=== PATIENT | female | born 1950 | race Caucasian/White ===

== ENCOUNTER 2024-10-31 16:47 | Emergency (ER) | payer MEDICARE, OTHER ==
[~2024-10-31] VITALS: Ht 162.6 cm; Wt 74.8 kg
[2024-10-31 17:20] VITALS: BP 110/61; TEMP 98.1
[2024-10-31] MEDS ORDERED: KETOROLAC TROMETHAMINE 15 MG/ML VIAL ONE (18:46)
[2024-10-31] MEDS ORDERED: dexaMETHasone SOD PHOSPHATE 4 MG/ML VIAL ONE (18:47)
[2024-10-31] MEDS: dexaMETHasone SOD PHOSPHATE 4 MG/ML VIAL IM ONE (18:53)
[2024-10-31] MEDS: KETOROLAC TROMETHAMINE 15 MG/ML VIAL IM ONE (18:56)
[2024-10-31 19:05] VITALS: O2SAT 99
== END 2024-10-31 19:06 | disposition home or self-care (01) ==
LOC: ER 17:17
DX: R20.0 Anesthesia of skin (principal); M54.2 Cervicalgia; R13.10 Dysphagia, unspecified; R47.81 Slurred speech; R53.1 Weakness; E78.5 Hyperlipidemia, unspecified; I48.91 Unspecified atrial fibrillation; Z79.01 Long term (current) use of anticoagulants; Z88.0 Allergy status to penicillin
CPT/HCPCS: 99284; 96372; J1885; J1100

== ENCOUNTER 2024-11-09 16:20 | Emergency (ER) | payer MEDICARE, OTHER ==
[~2024-11-09] VITALS: Ht 162.6 cm; Wt 74.4 kg
[2024-11-09 16:34] VITALS: TEMP 99.3
[2024-11-09] MEDS ORDERED: KETOROLAC TROMETHAMINE 15 MG/ML VIAL ONE (17:14)
[2024-11-09] MEDS: KETOROLAC TROMETHAMINE 15 MG/ML VIAL IM ONE (17:54)
[2024-11-09 18:02] VITALS: BP 125/65; O2SAT 97
== END 2024-11-09 17:58 | disposition home or self-care (01) ==
LOC: ER 16:26
DX: M54.2 Cervicalgia (principal); R20.0 Anesthesia of skin; I48.91 Unspecified atrial fibrillation; G89.29 Other chronic pain; Z88.0 Allergy status to penicillin
CPT/HCPCS: 99283; 96372; J1885